=== PATIENT | female | born 1995 | race Caucasian/White ===

== ENCOUNTER 2016-08-16 08:58 | Outpatient (CLI) | payer OTHER ==
[2016-08-16 09:15] LABS: BASOPHILS % 0.2 (0.0-1.5); EOSINOPHILS % 0.6 % (0.0-6.8); MEAN CORPUSCULAR HEMOGLOBIN 31.4 pg (28.0-34.0); MEAN CORPUSCULAR VOLUME 90.8 fl (80.0-100.0); MONOCYTES % 2.5 % (0.0-11.0); NEUTROPHILS # 6.1 # k/uL (1.4-7.7)
[2016-08-16 09:39] LABS: eGFR (African) > 60; eGFR (Non-African) > 60
== END 2016-08-16 09:00 ==
LOC: LAB 08:58
PROVIDERS: ATTEND Physician Assistant
DX: Z00.00 Encounter for general adult medical examination without abnormal findings (principal)
CPT/HCPCS: 36415; 80053; 84443; 85025; 87491; 87591; 88148; G0143

== ENCOUNTER 2016-08-23 10:19 | Outpatient (CLI) | payer OTHER | END 2016-08-23 13:51 | LOC: LABRHC 10:19 | PROVIDERS: ATTEND Physician Assistant | DX: Q87.43 Marfan syndrome with skeletal manifestation (principal) ==